=== PATIENT | female | born 1970 | race Two or more races ===

== ENCOUNTER 2016-09-18 18:19 | Emergency (ER) | payer OTHER ==
[~2016-09-18] VITALS: Ht 162.6 cm; Wt 83.5 kg
[2016-09-18 18:40] VITALS: BP 156/78
[2016-09-18] MEDS ORDERED: LIDOCAINE 1% HCL (LOCAL ANESTH.) INJ 20ML MDV IJ ONE (19:45)
== END 2016-09-18 20:20 | disposition home or self-care (01) ==
LOC: ER 18:52
DX: L02.211 Cutaneous abscess of abdominal wall (principal)
CPT/HCPCS: 10060

== ENCOUNTER 2016-09-20 16:40 | Emergency (ER) | payer OTHER ==
[~2016-09-20] VITALS: Ht 162.6 cm; Wt 82.6 kg
[2016-09-20 19:00] VITALS: BP 143/70
== END 2016-09-20 19:01 | disposition home or self-care (01) ==
LOC: ER 16:46
DX: N61.1 Abscess of the breast and nipple (principal); Z48.01 Encounter for change or removal of surgical wound dressing

== ENCOUNTER 2019-01-22 12:08 | Emergency (ER) | payer SELFPAY ==
[~2019-01-22] VITALS: Ht 157.5 cm; Wt 79.4 kg
[2019-01-22 12:30] VITALS: BP 180/78
[2019-01-22 14:38] LABS: Urine Bacteria NONE SEEN /hpf (None Seen); Urine Blood 2+ /uL (Negative); Urine Mucus FEW (None Seen); Urine Specific Gravity 1.019 (1.001-1.035); Urine WBC 837 /hpf (0 - 5)
[2019-01-22] MEDS ORDERED: cefTRIAXone SOD 1,000 MG VL IM ONE (14:45)
[2019-01-22] MEDS ORDERED: PHENAZOPYRIDINE HCL 100 MG TAB PO ONE (14:45)
== END 2019-01-22 15:03 | disposition home or self-care (01) ==
LOC: ER 12:08
DX: N39.0 Urinary tract infection, site not specified (principal)
CPT/HCPCS: 81001; 96372; 99283; J0696

== ENCOUNTER 2022-05-07 19:18 | Emergency (ER) | payer OTHER ==
[~2022-05-07] VITALS: Ht 152.4 cm; Wt 83.3 kg
[2022-05-07 20:42] LABS: Urine Bacteria NONE SEEN /hpf (None Seen); Urine Blood 1+ /uL (Negative); Urine Specific Gravity 1.012 (1.001-1.035); Urine WBC 5 /hpf (0 - 5)
[2022-05-07 20:58] LABS: Basophils # (auto) 0.1 10 ^3/uL (0-0.2); Eosinophils # (auto) 0.2 10 ^3/uL (0-0.8); Eosinophils % (auto) 2.5 % (0.0-7.0); Hematocrit 37.7 % (36.0-46.0); Hemoglobin 12.7 g/dL (12.2-16.2); Lymphocytes # (auto) 2.4 10 ^3/uL (0.4-5.4); Lymphocytes % (auto) 29.3 % (10.0-50.0); Mean Corpuscular Hemoglobin 28.2 pg (28.0-32.0); Mean Corpuscular Hgb Conc. 33.8 g/dL (32.0-36.0); Mean Corpuscular Volume 83.4 fL (80.0-100.0); Monocytes # (auto) 0.5 10 ^3/uL (0-1.3); Monocytes % (auto) 5.8 % (0.0-12.0); Neutrophils # (auto) 5.1 10 ^3/uL (1.6-8.6); Neutrophils % (auto) 61.4 % (37.0-80.0); Nucleated Red Blood Cells % 0.1 %; Red Blood Cells 4.52 10^6/uL (4.0-5.20); Red Cell Distribution Width 14.6 % (11.8-14.3); White Blood Cell 8.3 10^3/uL (4.4-10.8)
[2022-05-07 21:18] LABS: Albumin 3.7 g/dL (3.4-5.0); BUN/Creatinine Ratio 24.7; Calcium 9.3 mg/dL (8.5-10.1); Magnesium 2.5 mg/dL (1.6-2.6); Potassium 3.8 mmol/L (3.5-5.1)
[2022-05-07 21:20] LABS: Bilirubin, Total 0.4 mg/dL (0.2-1.0); Total Protein 8.3 g/dL (6.4-8.2)
[2022-05-08 03:00] VITALS: BP 135/49
== END 2022-05-08 03:03 | disposition home or self-care (01) ==
LOC: ER 19:18
DX: R42 Dizziness and giddiness (principal); E86.0 Dehydration; R73.9 Hyperglycemia, unspecified; E78.5 Hyperlipidemia, unspecified; I10 Essential (primary) hypertension
CPT/HCPCS: 36415; 71045; 80053; 81001; 83735; 83880; 84484; 85025; 93005